=== PATIENT | female | born 1985 | race Asian ===

== ENCOUNTER 2021-02-03 10:49 | Emergency (ER) | payer OTHER ==
[~2021-02-03] VITALS: Ht 149.9 cm; Wt 55.0 kg
--- NOTE | 2021-02-03 13:14 | PHYS DOC ---
Past History Additional Past Medical Histor: ovarian cyst Past Surgical History: Other Additional Past Surgical Histo: ovarian cyst Alcohol Use: Rarely General Adult EDM: Chief Complaint: COUGH HPI: HPI: Patient is a 35-year-old female that presents today with increased exertional dyspnea. Patient states that 3 weeks ago she was diagnosed with Covid, did her 14 days of quarantine, spent another week at home recovering just due to exertional dyspnea. Patient states today when she went to work for the first time she has had increased exertional dyspnea going up and down stairs and walking long distances. Patient denies taking oral contraceptives. And has not been on a long trip in quite some time. Review of Systems: Review of Systems: Constitutional: Denies fever or chills Eyes: Denies change in visual acuity HENT: Denies nasal congestion or sore throat Respiratory: Denies cough or shortness of breath Cardiovascular: Exertional dyspnea GI: Denies abdominal pain, nausea, vomiting, bloody stools or diarrhea : Denies dysuria Musculoskeletal: Denies back pain or joint pain Integument: Denies rash Neurologic: Denies headache, focal weakness or sensory changes Endocrine: Denies polyuria or polydipsia Lymphatic: Denies swollen glands Psychiatric: Denies depression or anxiety Current Medications: Current Meds: Current Medications Medications (Trade) Dose Ordered Sig/Arian Start Time Stop Time Status Last Admin Dose Admin Info (Do NOT chart on this entry -- for MONITORING) 1 each PRN DAILY PRN 02/03/21 13:15 02/05/21 13:14 Iohexol (Omnipaque 350 Mg/ml) 100 ml 1X ONCE 02/03/21 13:15 02/03/21 13:16 Allergies: Allergies: Allergies Coded Allergies Type Severity Reaction Last Updated Verified No Known Drug Allergies 02/03/21 No Physical Exam: PE: Constitutional: Well developed, well nourished, no acute distress, non-toxic appearance. [] HENT: Normocephalic, atraumatic, bilateral external ears normal, oropharynx moist, no oral exudates, nose normal. [] Eyes: PERRLA, EOMI, conjunctiva normal, no discharge. [] Neck: Normal range of motion, no tenderness, supple, no stridor. [] Cardiovascular:Heart rate regular rhythm, no murmur [] Lungs & Thorax: Breath sounds bilaterally diminished, cough is noted Abdomen: Bowel sounds normal, soft, no tenderness, no masses, no pulsatile masses. [] Skin: Warm, dry, no erythema, no rash. [] Back: No tenderness, no CVA tenderness. [] Extremities: No tenderness, no cyanosis, no clubbing, ROM intact, no edema. [] Neurologic: Alert and oriented X 3, normal motor function, normal sensory function, no focal deficits noted. [] Psychologic: Affect normal, judgement normal, mood normal. [] Current Patient Data: Labs: Laboratory Tests Test 02/03/21 12:28 02/03/21 13:32 White Blood Count 7.1 x10^3/uL Red Blood Count 4.62 x10^6/uL Hemoglobin 14.8 g/dL Hematocrit 43.2 % Mean Corpuscular Volume 94 fL Mean Corpuscular Hemoglobin 32 pg Mean Corpuscular Hemoglobin Concent 34 g/dL Red Cell Distribution Width 12.2 % Platelet Count 447 x10^3/uL Neutrophils (%) (Auto) 74 % Lymphocytes (%) (Auto) 18 % Monocytes (%) (Auto) 8 % Eosinophils (%) (Auto) 1 % Basophils (%) (Auto) 0 % Neutrophils # (Auto) 5.3 x10^3uL Lymphocytes # (Auto) 1.3 x10^3/uL Monocytes # (Auto) 0.5 x10^3/uL Eosinophils # (Auto) 0.0 x10^3/uL Basophils # (Auto) 0.0 x10^3/uL Prothrombin Time 10.6 SEC Prothromb Time International Ratio 1.0 Activated Partial Thromboplast Time 27 SEC Sodium Level 140 mmol/L Potassium Level 4.0 mmol/L Chloride Level 100 mmol/L Carbon Dioxide Level 28 mmol/L Anion Gap 12 Blood Urea Nitrogen 13 mg/dL Creatinine 0.8 mg/dL Estimated GFR (Cockcroft-Gault) 82.1 BUN/Creatinine Ratio 16 Glucose Level 90 mg/dL Calcium Level 8.7 mg/dL Total Bilirubin 0.7 mg/dL Aspartate Amino Transf (AST/SGOT) 71 U/L Alanine Aminotransferase (ALT/SGPT) 226 U/L Alkaline Phosphatase 249 U/L Troponin I High Sensitivity 9 ng/L Total Protein 8.2 g/dL Albumin 4.0 g/dL Albumin/Globulin Ratio 1.0 Bedside Urine HCG, Qualitative hcg negative Current Medications Medications (Trade) Dose Ordered Sig/Arian Route PRN Reason Start Time Stop Time Status Last Admin Dose Admin Iohexol (Omnipaque 350 Mg/ml) 100 ml 1X ONCE IV 02/03/21 13:15 02/03/21 13:16 DC Info (Do NOT chart on this entry -- for MONITORING) 1 each PRN DAILY PRN MC SEE COMMENTS 02/03/21 13:15 02/05/21 13:14 Lorazepam (Ativan Inj) 0.5 mg 1X ONCE IVP 02/03/21 14:15 02/03/21 14:16 DC 02/03/21 14:11 Lorazepam (Ativan Inj) 2 mg STK-MED ONCE .ROUTE 02/03/21 14:05 02/03/21 14:05 DC Vital Signs: Vital Signs Date Time Temp Pulse Resp B/P (MAP) Pulse Ox O2 Delivery O2 Flow Rate FiO2 02/03/21 12:41 98.6 50 18 110/53 (72) 98 Room Air EKG: EKG: [] Radiology/Procedures: Radiology/Procedures: REASON: SOA, S/P covid PROCEDURE: CT ANGIOGRAPHY CHEST CTA chest with contrast dated 02/03/2021. COMPARISON: None. Clinical indication: Shortness of breath. TECHNIQUE: Contiguous axial imaging of the chest performed following the intravenous administration of 100 cc Isovue-370. Study was performed as dedicated PE protocol with thin cut coronal 3-D reconstruction. One or more of the following individualized dose reduction techniques were utilized for this examination: 1. Automated exposure control 2. Adjustment of the mA and/or kV according to patient size 3. Use of iterative reconstruction technique. FINDINGS: Heart size is upper limits of normal. No pericardial effusion. Coronary artery calcifications. No mediastinal, hilar or axillary lymphadenopathy. Thyroid gland is unremarkable. Contrast bolus is adequate. No evidence of central, lobar or segmental pulmonary embolus. Subsegmental branches are not well evaluated based on technique Central airways are patent. There is patchy groundglass opacity throughout both lungs, basilar and peripheral predominant. Mild involvement of the left upper lobe and right middle lobe and lingula. No pleural effusion. No pneumothorax. Limited images of the upper abdomen are unremarkable. No acute bony abnormality. IMPRESSION: 1. No evidence of central, lobar or segmental pulmonary embolus. 2. Patchy bilateral airspace disease consistent with pneumonia. Consider Covid 19 pneumonitis. Electronically signed by: Demond Harley MD (02/03/2021 2:07 PM) [facility][] Heart Score: C/O Chest Pain: N/A Risk Factors: Risk Factors: DM, Current or recent (<one month) smoker, HTN, HLP, family history of CAD, obesity. Risk Scores: Score 0 - 3: 2.5% MACE over next 6 weeks - Discharge Home Score 4 - 6: 20.3% MACE over next 6 weeks - Admit for Clinical Observation Score 7 - 10: 72.7% MACE over next 6 weeks - Early Invasive Strategies Course & Med Decision Making: Course & Med Decision Making Pertinent Labs and Imaging studies reviewed. (See chart for details) [id number] reviewed radiological and laboratory results with patient, patient informed of pneumonia following Covid infection, patient will be given Decadron while here in the emergency department, will also be discharged with antibiotics and Tessalon Perles to help with cough. Patient will need to follow-up with her [facility] care provider in 5 to 7 days if no better. Patient given strict return instructions. Dragon Disclaimer: [employer] Disclaimer: This electronic medical record was generated, in whole or in part, using a voice recognition dictation system. Departure Departure: Impression: Primary Impression: Pneumonia Qualified Codes: U07.1 - COVID-19; J12.82 - Pneumonia due to coronavirus disease 2018 Disposition: HOME / SELF CARE / HOMELESS Condition: STABLE Referrals: JUAN RUBIN MD (PCP) Patient Instructions: Pneumonia, Adult Additional Instructions: Increase by mouth fluids Zithromax take as directed for 5 days Tessalon Perles take 1 tablet every 8 hours as needed for cough Cool-mist humidifier to help with cough and congestion as well Return to the emergency department for increased shortness of breath, bluing of your lips and fingertips, or inability to catch her breath. Scripts Benzonatate (BENZONATATE) 100 Mg Capsule 1-2 CAP PO Q4HRS for COUGH, #20 CAP Prov: JULES MAYNARD VIBRATOR OPERATOR 02/03/21 Azithromycin (AZITHROMYCIN TABLET) 250 Mg Tablet 1 PKG PO UD for PNEUMONIA for 5 Days, #6 TAB 0 Refills 2 the first day followed by 1 for days 2-5 Prov: JULES MAYNARD VIBRATOR OPERATOR 02/03/21 JULES MAYNARD APRN Feb 03, 2021 13:14
[2021-02-03] MEDS ORDERED: IOHEXOL 350 MG/ML 100 ML VIAL. IV ONE (13:15)
[2021-02-03] MEDS ORDERED: CONTRAST GIVEN. MC PRN (13:15)
[2021-02-03 13:43] LABS: BASO % 0 % (0-3); EOS % 1 % (0-3); HEMATOCRIT 43.2 % (36.0-47.0); HEMOGLOBIN 14.8 g/dL (12.0-15.5); LYMPH # 1.3 x10^3/uL (1.0-4.8); LYMPH % 18 % (24-48); MEAN CORPUSCULAR HEMOGLOBIN 32 pg (25-35); MEAN CORPUSCULAR HGB CONC 34 g/dL (31-37); MEAN CORPUSCULAR VOLUME 94 fL (79-100); MONO # 0.5 x10^3/uL (0.0-1.1); MONO % 8 % (0-9); NEUT # 5.3 x10^3uL (1.8-7.7); NEUT % 74 % (31-73); PLATELET COUNT 447 x10^3/uL (140-400); RED BLOOD COUNT 4.62 x10^6/uL (3.50-5.40); RED CELL DISTRIBUTION WIDTH 12.2 % (11.5-14.5); WHITE BLOOD COUNT 7.1 x10^3/uL (4.0-11.0)
[2021-02-03 13:53] LABS: CALCIUM 8.7 mg/dL (8.5-10.1); CREATININE 0.8 mg/dL (0.6-1.0); GFR 82.1
[2021-02-03 13:59] LABS: TOTAL BILIRUBIN 0.7 mg/dL (0.2-1.0); TOTAL PROTEIN 8.2 g/dL (6.4-8.2)
--- NOTE | 2021-02-03 14:10 | RAD ---
CTA chest with contrast dated 02/03/2021. COMPARISON: None. Clinical indication: Shortness of breath. TECHNIQUE: Contiguous axial imaging of the chest performed following the intravenous administration of 100 cc Is ovue-370. Study was performed as dedicated PE protocol with thin cut coronal 3-D reconstruction. One or more of the following individualized dose reduction techniques were utilized for this examinat ion: 1. Automated exposure control 2. Adjustment of the mA and/or kV according to patient size 3. Use of iterative reconstruction technique. FINDINGS: Heart size is upper limits of normal. No pericardial effusion. Coronary artery calcifications. No med iastinal, hilar or axillary lymphadenopathy. Thyroid gland is unremarkable. Contrast bolus is adequate. No evidence of central, lobar or segmental pulmonary embolus. Subsegmenta l branches are not well evaluated based on technique Central airways are patent. There is patchy groundglass opacity throughout both lungs, basilar and pe ripheral predominant. Mild involvement of the left upper lobe and right middle lobe and lingula. No p leural effusion. No pneumothorax. Limited images of the upper abdomen are unremarkable. No acute bony abnormality. IMPRESSION: 1. No evidence of central, lobar or segmental pulmonary embolus. 2. Patchy bilateral airspace disease consistent with pneumonia. Consider Covid 19 pneumonitis. Electronically signed by: Demond Harley MD (02/03/2021 2:07 PM) [facility]
[2021-02-03] MEDS ORDERED: DEXAMETHASONE SOD PHOS 10 MG/ML VIAL. PO ONE (14:30)
[2021-02-03] MEDS ORDERED: AZIT250T6 PO (14:42)
[2021-02-03] MEDS ORDERED: BENZ-8 PO (14:42)
[2021-02-03 14:45] VITALS: BP 114/69
[2021-02-03] MEDS ORDERED: BENZONATATE 100 MG CAPSULE. PO ONE (14:45)
--- NOTE | 2021-02-03 15:02 | EKG ---
[address] [address] Test Date: 2021-02-03 Test Time: 14:56:44 Pat Name: CELE MORA Department: Room: Gender: F Gunner'S Mate G: KELLY : 1985 Requested By: JULES MAYNARD Order Number: [id number] Reading MD: Measurements Intervals [place] Rate: 67 P: 38 AR: 138 QRS: 83 QRSD: 76 T: 22 QT: 350 QTc: 372 Interpretive Statements SINUS RHYTHM NORMAL ECG RI6.02 No previous ECG available for comparison
== END 2021-02-03 15:20 | disposition home or self-care (01) ==
LOC: ER 10:49 → EDBD 10:49 → ER 15:20
DX: U07.1 COVID-19 (principal); J12.82 Pneumonia due to coronavirus disease 2019
CPT/HCPCS: 36415; 71275; 80053; 81025; 84484; 85025; 85610; 85730; 93005; 96374; 99285; J1100; J2060

== ENCOUNTER 2021-02-06 08:56 | Emergency (ER) | payer OTHER ==
[~2021-02-06] VITALS: Ht 149.9 cm; Wt 57.2 kg
[~2021-02-06 08:56] MED LIST: AZIT250T6 PO; BENZ-8 PO
[2021-02-06] MEDS ORDERED: DEXAMETHASONE 4 MG TABLET PO ONE (10:30)
[2021-02-06] MEDS ORDERED: GUAI120L35 PO (10:30)
[2021-02-06 10:31] VITALS: BP 125/74
--- NOTE | 2021-02-06 10:31 | PHYS DOC ---
Past History Additional Past Medical Histor: ovarian cyst Past Surgical History: Other Additional Past Surgical Histo: ovarian cyst Alcohol Use: None General Adult EDM: Chief Complaint: SHORTNESS OF BREATH HPI: HPI: Patient is a [age] year old [sex] who presents with [] Review of Systems: Review of Systems: Constitutional: Denies fever or chills Eyes: Denies redness or eye pain HENT: Denies nasal congestion or sore throat Respiratory: Denies cough or shortness of breath Cardiovascular: Denies chest pain or palpitations GI: Denies abdominal pain, nausea, or vomiting : Denies dysuria or hematuria Musculoskeletal: Denies back pain or joint pain Integument: Denies rash or skin lesions Neurologic: Denies headache, focal weakness or sensory changes Complete systems were reviewed and found to be within normal limits, except as documented in this note. Allergies: Allergies: Allergies Coded Allergies Type Severity Reaction Last Updated Verified No Known Drug Allergies 02/06/21 No Physical Exam: PE: Constitutional: Well developed, well nourished, no acute distress, non-toxic appearance HENT: Normocephalic, atraumatic Eyes: PERRL, EOMI, conjunctiva normal, no discharge Neck: Normal range of motion, no tenderness, supple Lungs & Thorax: No respiratory distress, equal chest rise and fall Abdomen: Soft, no tenderness Skin: Warm, dry, no erythema, no rash Back: No tenderness, no CVA tenderness Extremities: No tenderness, ROM intact, no edema Neurologic: Alert and oriented X 3, normal motor function, normal sensory function, no focal deficits noted Psychologic: Affect normal, judgment normal Current Patient Data: Vital Signs: Vital Signs Date Time Temp Pulse Resp B/P (MAP) Pulse Ox O2 Delivery O2 Flow Rate FiO2 02/06/21 09:12 97.6 53 17 115/67 (83) 98 Room Air EKG: EKG: [] Radiology/Procedures: Radiology/Procedures: [] Heart Score: C/O Chest Pain: N/A Course & Med Decision Making: Course & Med Decision Making Patient stable for discharge with outpatient follow-up with PCP. Discussed findings and plan with patient, who acknowledges understanding and agreement. COVID-19 CRITERIA: The patient was evaluated during the global COVID-19 pandemic, and that diagnosis was suspected/considered upon their initial presentation. Their evaluation, treatment and testing was consistent with current guidelines for patients who present with complaints or symptoms that may be related to COVID-19. Ceci Disclaimer: Dragon Disclaimer: This electronic medical record was generated, in whole or in part, using a voice recognition dictation system. Departure Departure: Impression: Primary Impression: Pneumonia due to COVID-19 virus Disposition: HOME / SELF CARE / HOMELESS Condition: STABLE Referrals: JUAN RUBIN MD (PCP) Patient Instructions: Incentive Spirometer, Viral Syndrome Additional Instructions: Use bedside humidifier especially when sleeping. Take over the counter cold and cough remedies as needed. Continue previously prescribed antibiotic to completion. Use incentive spirometer 10 times in a row at least 5 times daily. You have been tested for or diagnosed with COVID-19. It is an infection caused by a new type of coronavirus. COVID-19 will cause cold-like or mild flu symptoms in most. It can cause more severe symptoms like problems breathing in some. There is no treatment for COVID-19. The body will clear the infection over time. Self-care will help to ease discomfort. Steps to Take: Self-Care Rest as needed. Healthy habits may help you feel better. Steps include: Choose healthy foods including fruits and vegetables. Drink water throughout the day. Get plenty of sleep each night. If you smoke, try to quit. It may ease breathing. Avoid alcohol. Keep Others Healthy The virus can spread to others. Droplets are released every time you sneeze or cough. The droplets can get into the mouth, nose, or eyes of people near you and lead to infection. To lower the chances of spreading COVID-19 to others: Stay at home until your doctor has said it is safe to leave. If you tested positive this will mean staying isolated until both of the following are true: At least 7 days have passed since the start of illness. You are free of fever for at least 72 hours without the use of medicine. During this time: - Avoid public areas, events, or transportation. Do not return to work or school until your doctor has said it is safe to do so. - Call ahead if you need to go to a medical center. Let them know you may have COVID-19. It will help them guide you where to go. They may also ask you to wear a facemask when you come to the office. - If you call for emergency medical services, let them know you may have COVID- 19. While at home: - Try to avoid close contact with others. Stay about 6 feet away. - If possible, spend most of your time in a separate room from others. - Use a face mask if you will be in close contact with others such as sharing a room or vehicle. - Have someone wipe down common surfaces in the home. Use household customer operations intern every day on areas like doorknobs, counters, or sinks. - Cough or sneeze into a tissue. Throw the tissue away right after use. If a tissue is not available, cough or sneeze into your elbow. - Wash your hands often. Wash them after sneezing or coughing. Use soap and water and wash for at least 20 seconds. Alcohol based hand carbonating stone cleaner can be used if soap and water is not available. - Do not prepare food for others. Avoid sharing personal items like forks, spoons, or toothbrushes. - Avoid close contact with pets while you are sick. There is no evidence of the virus passing to pets. This is a safety step until more is known about this virus. Isolation can be frustrating. Social interaction can help. Keep in touch with friends and family through phone and tech options. You can still interact with others in your home, just keep a safe distance of about 6 feet. Follow-up: Your doctors office will check in with you to see if there are any changes in your health. You may be asked to keep track of symptoms to share with them. They will also let you know when you are clear to be in public again. Problems to Look Out For: Contact your doctor if your recovery is not going as you expect. Get emergency care if you have problems such as: - Trouble breathing - Nonstop chest pain or pressure - Changes in awareness, confusion, or problems waking - Lips or face have bluish color - Worsening of symptoms If you think you have an emergency, call for emergency medical services right away. As taken from [facility] Guaifenesin/Codeine Phosphate (Codeine-Guaifen 10-100 mg/5 ml) 120 Ml Liquid 10 ML PO PRN Q6HRS PRN for cough and congestion MDD 20 Milliliter(s), #200 ML 0 Refills Prov: VALENTE THAKKAR DO 02/06/21 VALENTE THAKKAR DO Feb 06, 2021 10:31
== END 2021-02-06 10:49 | disposition home or self-care (01) ==
LOC: ER 08:56
DX: U07.1 COVID-19 (principal); J12.82 Pneumonia due to coronavirus disease 2019
CPT/HCPCS: 99283; J8540